=== PATIENT | female | born 1940 | race Caucasian/White ===

== ENCOUNTER 2019-01-02 08:25 | Inpatient (IN) | payer MEDICARE, BC | END 2019-01-05 11:30 | disposition home or self-care (01) | LOC: PAS IN 08:25 → ORTHO 4S 14:45 | PROC: 0SRC0J9 Replacement of Right Knee Joint with Synthetic Substitute, Cemented, Open Approach (ICD-10-PCS; principal; 2019-01-02 10:52) | DX: M17.11 Unilateral primary osteoarthritis, right knee (principal); D62 Acute posthemorrhagic anemia ==